=== PATIENT | female | born 1955 ===

== ENCOUNTER → 2022-09-07 | Day surgery (SDC) | payer OTHER ==
[~2022-09-07] VITALS: Ht 162.6 cm; Wt 57.6 kg
[~2022-09-07] MED LIST: ALTACE2.5 M1; GLIPIZIDE5 MG PO; METFORMIN HCL500 MG PO; ZOCOR40 MG PO
== END | disposition home or self-care (01) ==
LOC: ADM 09-06 11:45 → CIR.AMB 11:45
PROVIDERS: ATTEND Surgery Surgery of the Hand
DX: M65.841 Other synovitis and tenosynovitis, right hand (principal); Z20.822 Contact with and (suspected) exposure to COVID-19